=== PATIENT | female | born 1935 | race Caucasian/White ===

== ENCOUNTER → 2018-01-16 | Outpatient (CLI) | payer MEDICARE ==
[2018-01-16 13:13] LABS: Creatinine, Urine Random 42.6 mg/dL (27.00-270.00)
[2018-01-16 13:16] LABS: Microalb/Creat Ratio UR, Rand 24.178 mg/g (0.000-30.000); Microalbumin, Random Urine 10.3 mg/L (0.000-20.000)
== END | disposition home or self-care (01) ==
LOC: LAB SHORT 12:17 → LAB 12:17
PROVIDERS: Internal Medicine Nephrology
DX: N18.2 Chronic kidney disease, stage 2 (mild) (principal); D63.1 Anemia in chronic kidney disease; R73.09 Other abnormal glucose
CPT/HCPCS: 82043; 82570

== ENCOUNTER → 2019-01-09 | Outpatient (CLI) | payer MEDICARE ==
[2019-01-10 15:01] LABS: Adenovirus F 40/41 Not Detected (NOT DETECT); Astrovirus Not Detected (NOT DETECT); Campylobacter Sp Not Detected (NOT DETECT); Cryptosporidium Not Detected (NOT DETECT); Cyclospora Cayetanensis Not Detected (NOT DETECT); E. Coli O157 Not Detected (NOT DETECT); Entamoeba Histolytica Not Detected (NOT DETECT); Enteroaggregative E. coli-EAEC Not Detected (NOT DETECT); Enteropathogenic E. coli-EPEC Not Detected (NOT DETECT); Enterotoxigenic E. coli-ETEC Not Detected (NOT DETECT); Giardia Lamblia Not Detected (NOT DETECT); Norovirus GI/GII Not Detected (NOT DETECT); Plesiomonas Shigelloides Not Detected (NOT DETECT); Rotavirus A Not Detected (NOT DETECT); Salmonella Sp Not Detected (NOT DETECT); Sapovirus Not Detected (NOT DETECT); Shiga Toxin-prod E. coli-STEC Not Detected (NOT DETECT); Shigella/Enteroin E. coli-EIEC Not Detected (NOT DETECT); Vibrio Cholerae Not Detected (NOT DETECT); Vibrio Sp Not Detected (NOT DETECT); Yersinia Enterocolitica Not Detected (NOT DETECT)
== END | disposition home or self-care (01) ==
LOC: LAB FUT 01-08 16:35 → LAB UCHC 09:05 → LAB SHORT 09:05
PROVIDERS: Family Medicine
DX: R19.7 Diarrhea, unspecified (principal)
CPT/HCPCS: 87507

== ENCOUNTER → 2019-02-27 | Outpatient (CLI) | payer MEDICARE | END | disposition home or self-care (01) | LOC: LAB 11:21 → LAB SHORT 11:21 | DX: H60.92 Unspecified otitis externa, left ear (principal) | CPT/HCPCS: 87070; 87077; 87186; 87205 ==

== ENCOUNTER → 2020-10-12 | Outpatient (CLI) | payer MEDICARE, OTHER | LOC: LAB 16:40 → LAB SHORT 16:40 | DX: N39.0 Urinary tract infection, site not specified (principal) | CPT/HCPCS: 87086 ==

== ENCOUNTER 2021-05-17 08:29 | Observation (INO) | payer MEDICARE, OTHER ==
[~2021-05-17] VITALS: Ht 157.5 cm; Wt 66.8 kg
[2021-05-17] MEDS ORDERED: Aspir 8181 MG PO (08:58)
[2021-05-17] MEDS ORDERED: AMLO10 PO (08:58)
[2021-05-17] MEDS ORDERED: METO25 PO (08:59)
[2021-05-17] MEDS ORDERED: Alphagan P5 ML RIGHTEYE (09:04)
[2021-05-17] MEDS ORDERED: ATOR40TA PO (09:04)
[2021-05-17] MEDS ORDERED: Toviaz8 MG PO (09:07)
[2021-05-17] MEDS ORDERED: DORZOPSO RIGHTEYE (09:08)
[2021-05-17] MEDS ORDERED: LATA.005SO BOTHEYES (09:09)
[2021-05-17 10:02] LABS: BASOPHILS ABSOLUTE AUTO 0.04 K/mm3 (0.00-0.23); BASOPHILS PERCENT AUTO 1 % (0-2); EOSINOPHILS ABSOLUTE AUTO 0.09 K/mm3 (0.00-0.68); EOSINOPHILS PERCENT AUTO 1 % (0-6); Hematocrit 44.8 % (33.0-51.0); Hemoglobin 14.9 g/dL (11.5-16.0); IMMATURE GRAN ABSOLUTE AUTO 0.01 K/mm3 (0.00-0.10); IMMATURE GRAN PERCENT AUTO 0 % (0-1); LYMPHOCYTES ABSOLUTE AUTO 1.24 K/mm3 (0.84-5.20); LYMPHOCYTES PERCENT AUTO 19 % (21-46); MONOCYTES ABSOLUTE AUTO 0.68 K/mm3 (0.16-1.47); MONOCYTES PERCENT AUTO 11 % (4-13); Mean Corpuscular HGB 33.8 pg (26.0-34.0); Mean Corpuscular HGB Conc 33.3 g/dL (31.5-36.5); Mean Corpuscular Volume 102 fL (80-100); Mean Platelet Volume 9.7 fL (9.1-12.4); NEUTROPHILS ABSOLUTE AUTO 4.35 K/mm3 (1.96-9.15); NEUTROPHILS PERCENT AUTO 68 % (41-73); Platelet Count 245 K/mm3 (150-400); RDW Coefficient Variation 13.2 % (11.7-14.2); RDW Standard Deviation 50.2 fL (35.1-46.3); Red Blood Cell Count 4.41 M/mm3 (3.80-5.20); White Blood Cell Count 6.41 K/mm3 (4.00-11.30)
[2021-05-17 10:16] LABS: Anion Gap 4 mmol/L (6-16); Blood Urea Nitrogen 14 mg/dL (8-24); Bun/Creatinine Ratio 16.3 (12.0-20.0); CO2, Blood 27 mmol/L (21-32); Calcium, Blood 9.5 mg/dL (8.5-10.1); Chloride, Blood 106 mmol/L (98-108); Creatinine, Blood 0.86 mg/dL (0.40-1.00); Glomerular Filtration Rate >60 (60-); Glucose, Blood 114 mg/dL (70-99); Potassium, Blood 4.1 mmol/L (3.5-5.5); Sodium, Blood 137 mmol/L (136-145)
[2021-05-17] MEDS ORDERED: LOSARTAN POTASS25 M2 PO (13:10)
[2021-05-17] MEDS ORDERED: ALPHAGAN P5 ML RIGHTEYE (13:10)
[2021-05-17] MEDS ORDERED: TEMAZEPAM PO (13:11)
[2021-05-17] MEDS ORDERED: KLOR-CON 1010 ME3 PO (13:11)
[2021-05-17] MEDS ORDERED: FUROSEMIDE40 MG PO (13:11)
--- NOTE | 2021-05-17 16:41 | NUR ---
Echocardiogram performed.
--- NOTE | 2021-05-17 20:44 | NUR ---
transfer report from [facility] egan rn ON 85 YEAR OLD fEMALE BEING ADMITTED WITH LT SIDED cva RT SIDED DEFICIT. Full code PT has hx of [place] with CABG remote reported , HTN , Hyperlipids, CAD. PT will be on Tele monitor, SCDS. NPO for swallow eval. Await admission.
[2021-05-18 05:18] LABS: CHOL/HDL RATIO 2.5; Cholesterol 159 mg/dL (50-200); HDL Cholesterol 63 mg/dL (>39); LDL/HDL RATIO 1.3; Low Density Lipoprotein Chol 80 mg/dL (0-110); Triglycerides 81 mg/dL (30-160); Very Low Density Lipoprot Chol 16 mg/dL (6-32)
[2021-05-18] MEDS ORDERED: SENN187 PO (06:25)
[2021-05-18] MEDS ORDERED: MIRALAX PO (06:26)
[2021-05-18] MEDS ORDERED: ACET500 PO (06:30)
[2021-05-18] MEDS ORDERED: THERA-D2000 UNIT PO (06:30)
--- NOTE | 2021-05-18 06:37 | NUR ---
dELIGHTFUL ELDERLY pt with cad with 4 way CABG 2012 who had rt sided deficits presenting over 30 hours to admit had new lt lacular infarct chronic sm vessel ischemic changes. HAs DR Foster appt cardiology on MON scheduled. She is in tele with SR PACS occ. Room air voids but only once. has IVF NS running at 75 ml HR. 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 Due for Epoetin inj today. She has sl rt facial droop but no other obvious deficits. Continues alert & pleasant with sl speech slur. 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
[2021-05-18] MEDS ORDERED: CLOP75 PO (12:39)
--- NOTE | 2021-05-18 13:45 | NUR ---
DISCHARGED HOME. PHARMACY COMPLETING MEDICATION EDUCATION AT THIS TIME. THIS RN UTILIZED TEACHBACK EDUCATION AND PATIENT ALSO VERBALIZED UNDERSTANDING. NEPHEW EN ROUTE TO ENDOCRINOLOGY SPECIALIST PATIENT. ALL PERSONAL BELONGINGS PACKED UP TO BE SENT WITH PATIENT.
== END 2021-05-18 14:10 | disposition home health service (06) ==
LOC: ER 08:29 → MEDS 08:30
PROVIDERS: Nurse Practitioner Acute Care; Student in an Organized Health Care Education/Training Program; ADMIT Internal Medicine
DX: I63.81 Other cerebral infarction due to occlusion or stenosis of small artery (principal); R29.810 Facial weakness; R47.1 Dysarthria and anarthria; G81.91 Hemiplegia, unspecified affecting right dominant side; R13.10 Dysphagia, unspecified; R29.704 NIHSS score 4; I25.2 Old myocardial infarction; I10 Essential (primary) hypertension; E78.5 Hyperlipidemia, unspecified; I25.10 Atherosclerotic heart disease of native coronary artery without angina pectoris; I87.2 Venous insufficiency (chronic) (peripheral); Z79.82 Long term (current) use of aspirin; Z95.1 Presence of aortocoronary bypass graft
CPT/HCPCS: 36415; 70450; 70496; 70551; 80048; 80061; 85025; 92610; 93005; 93010; 93308; 93321; 93880; 96372; 97110; 97162; 97165; 97530; 99285-25; A9270; G0378; J1650; J7030; Q9967

== ENCOUNTER → 2022-12-20 | Outpatient (CLI) | payer MEDICARE, OTHER ==
[~2022-12-20] MED LIST: ACET500 PO; ALPHAGAN P5 ML RIGHTEYE; AMLO10 PO; ATOR40TA PO; Alphagan P5 ML RIGHTEYE; Aspir 8181 MG PO; CLOP75 PO; DORZOPSO RIGHTEYE; FUROSEMIDE40 MG PO; KLOR-CON 1010 ME3 PO; LATA.005SO BOTHEYES; LOSARTAN POTASS25 M2 PO; METO25 PO; MIRALAX PO; SENN187 PO; TEMAZEPAM PO; THERA-D2000 UNIT PO; Toviaz8 MG PO
[2022-12-23 14:11] LABS: T-TRANSGLUTAMINASE (TTG) IGA <2 U/mL (0-3); T-TRANSGLUTAMINASE (TTG) IGG 4 U/mL (0-5)
== END | disposition home or self-care (01) ==
LOC: LAB SHORT 16:24
PROVIDERS: Nurse Practitioner Family
DX: I25.2 Old myocardial infarction (principal); K52.89 Other specified noninfective gastroenteritis and colitis; R73.03 Prediabetes; R19.7 Diarrhea, unspecified
CPT/HCPCS: 83516; 86140; 86364

== ENCOUNTER → 2022-12-21 | Outpatient (CLI) | payer MEDICARE, OTHER ==
[2022-12-22 16:27] LABS: Adenovirus F 40/41 Not Detected (NOT DETECT); Astrovirus Not Detected (NOT DETECT); Campylobacter Sp Not Detected (NOT DETECT); Cryptosporidium Not Detected (NOT DETECT); Cyclospora Cayetanensis Not Detected (NOT DETECT); E. Coli O157 Not Detected (NOT DETECT); Entamoeba Histolytica Not Detected (NOT DETECT); Enteroaggregative E. coli-EAEC Not Detected (NOT DETECT); Enteropathogenic E. coli-EPEC Not Detected (NOT DETECT); Enterotoxigenic E. coli-ETEC Not Detected (NOT DETECT); Giardia Lamblia Not Detected (NOT DETECT); Norovirus GI/GII Not Detected (NOT DETECT); Plesiomonas Shigelloides Not Detected (NOT DETECT); Rotavirus A Not Detected (NOT DETECT); Salmonella Sp Not Detected (NOT DETECT); Sapovirus Not Detected (NOT DETECT); Shiga Toxin-prod E. coli-STEC Not Detected (NOT DETECT); Shigella/Enteroin E. coli-EIEC Not Detected (NOT DETECT); Vibrio Cholerae Not Detected (NOT DETECT); Vibrio Sp Not Detected (NOT DETECT); Yersinia Enterocolitica Not Detected (NOT DETECT)
== END | disposition home or self-care (01) ==
LOC: LAB SHORT 14:05
PROVIDERS: Nurse Practitioner Family
DX: I25.2 Old myocardial infarction (principal); K52.89 Other specified noninfective gastroenteritis and colitis; R73.03 Prediabetes
CPT/HCPCS: 83993; 87507

== ENCOUNTER → 2023-07-18 | Outpatient (CLI) | payer MEDICARE, OTHER ==
[~2023-07-18] MED LIST changes: +CARV3.125 PO; +ENTRESTO 24 MG1 EACH PO; +FURO20 PO; +LORA.5 PO; +MIDO5 PO; +NYST237S PO
== END ==
LOC: LAB SHORT 16:28 → LAB 16:28
DX: N39.0 Urinary tract infection, site not specified (principal)
CPT/HCPCS: 87077; 87086; 87186

== ENCOUNTER → 2023-08-07 | Outpatient (CLI) | payer MEDICARE, OTHER | LOC: LAB 16:38 → LAB SHORT 16:38 | DX: N39.0 Urinary tract infection, site not specified (principal) | CPT/HCPCS: 87077; 87086; 87186 ==